=== PATIENT | male | born 1995 | race Caucasian/White ===

== ENCOUNTER 2023-11-03 19:49 | Emergency (ER) | payer MEDICARE, OTHER ==
[~2023-11-03] VITALS: Ht 170.2 cm; Wt 51.7 kg
[2023-11-03 21:23] VITALS: BP 143/89; TEMP 97.6; O2SAT 97
--- NOTE | 2023-11-03 21:23 | NUR ---
BIBS C/O FOREIGN OBJECT "COTTON" IN HIS LEFT EAR FOR A WEEK NOW
[2023-11-03] MEDS ORDERED: NEOM10DR11 LEFT EAR (23:29)
== END 2023-11-03 23:40 | disposition home or self-care (01) ==
LOC: ER 19:54
DX: T16.2XXA Foreign body in left ear, initial encounter (principal); W44.8XXA Other foreign body entering into or through a natural orifice, initial encounter; Y93.89 Activity, other specified; Y92.89 Other specified places as the place of occurrence of the external cause; Y99.8 Other external cause status